=== PATIENT | female | born 1985 | race African-American/Black ===

== ENCOUNTER 2018-03-01 12:16 | Emergency (ER) | payer MEDICAID ==
[~2018-03-01] VITALS: Ht 163.8 cm; Wt 73.0 kg
[~2018-03-01 12:16] MED LIST: BENADRYL EX; BENADRYL25 MG PO; CORTISONE TOP; MEDDOSEPAK PO; STERAPRED DS10 MG PO
[2018-03-01] MEDS ORDERED: SPRINTEC 2828 DAY PO (12:35)
[2018-03-01 12:58] LABS: HEMATOCRIT 32.2 % (37.0-47.0); IMMATURE GRANULOCYTES 0.2 % (0.0-5.0); MEAN CORPUSCULAR HGB 28.2 pG CALC (26.0-32.0); MEAN CORPUSCULAR HGB CONC 32.6 g/L CALC (32.0-36.0); NEUT# 3.17 thou/uL (2.00-7.15); RED BLOOD COUNT 3.72 mill/uL (4.20-5.60); RED CELL DISTRI WIDTH 13.3 % (11.5-15.5)
[2018-03-01 13:06] LABS: HEMOGLOBIN 10.5 g/dl (12.0-16.0); MEAN CELL VOLUME 86.6 fL CALC (80.0-100.0)
[2018-03-01 13:12] LABS: ALBUMIN 4.3 g/dL (3.2-5.0); ALKALINE PHOSPHATASE 35 u/l (38-126); ANION GAP 13 (6-22 (CALC)); BILIRUBIN, TOTAL 0.8 mg/dL (0.0-1.4); BUN 9 mg/dL (7-17); BUN/CREATININE RATIO 15 (12-20 (CALC)); CARBON DIOXIDE 23 mmol/l (22-30); CHLORIDE 105 mmol/l (95-108); CREATININE 0.6 mg/dL (0.5-1.0); GFR > 60 ML/MIN (>=60 (CALC)); GFR FOR AFR.AMER. > 60 ML/MIN (>=60 (CALC)); SGOT/AST 34 u/l (14-36); SODIUM 137 mmol/l (137-146); TOTAL PROTEIN 8.1 g/dL (6.3-8.2)
[2018-03-01 13:20] LABS: BARBITURATES NEGATIVE (NEGATIVE); COCAINE NEGATIVE (NEGATIVE); METHADONE NEGATIVE (NEGATIVE); OXCYCODONE NEGATIVE (NEGATIVE); TETRAHYDROCANNABIONOL NEGATIVE (NEGATIVE); TRICYLIC ANTIDEPRESSANTS NEGATIVE (NEGATIVE)
[2018-03-01 16:45] VITALS: BP 128/88
== END 2018-03-01 16:48 | disposition home or self-care (01) ==
LOC: ED 12:16
PROVIDERS: Family Medicine
DX: R07.89 Other chest pain (principal); R06.02 Shortness of breath; J45.909 Unspecified asthma, uncomplicated

== ENCOUNTER 2019-05-08 09:29 | Emergency (ER) | payer MEDICAID ==
[~2019-05-08] VITALS: Ht 163.8 cm; Wt 71.8 kg
[~2019-05-08 09:29] MED LIST changes: +SPRINTEC 2828 DAY PO
[2019-05-08 11:11] VITALS: BP 140/82
== END 2019-05-08 11:11 | disposition home or self-care (01) ==
LOC: ED 09:29
DX: Z04.89 Encounter for examination and observation for other specified reasons (principal)

== ENCOUNTER 2021-03-15 08:14 | Emergency (ER) | payer MEDICAID ==
[~2021-03-15] VITALS: Ht 165.1 cm; Wt 72.0 kg
[2021-03-15 09:28] LABS: URINE BILIRUBIN - DIPSTICK NEGATIVE (NEGATIVE); URINE BLOOD DIPSTICK TRACE-INTACT (NEGATIVE); URINE COLOR YELLOW; URINE GLUCOSE - DIPSTICK NEGATIVE (NEGATIVE); URINE KETONE NEGATIVE (NEGATIVE); URINE LEUK ESTERASE NEGATIVE (NEGATIVE); URINE PROTEIN - DIPSTICK NEGATIVE (NEG-TRACE); URINE SPECIFIC GRAVITY 1.025; URINE UROBILINOGEN - DIPSTICK 0.2 E.U./dL (0.2)
[2021-03-15 09:32] LABS: URINE NITRITE - DIPSTICK NEGATIVE (Negative)
[2021-03-15] MEDS ORDERED: CYCLOBENZAPRINE10 MG PO (10:51)
[2021-03-15] MEDS ORDERED: NAPROXEN500 MG PO (10:51)
[2021-03-15 10:55] VITALS: BP 147/78
== END 2021-03-15 11:09 | disposition home or self-care (01) ==
LOC: ED 08:14
PROVIDERS: Emergency Medicine
DX: S13.9XXA Sprain of joints and ligaments of unspecified parts of neck, initial encounter (principal); J45.909 Unspecified asthma, uncomplicated; Z94.7 Corneal transplant status; X50.0XXA Overexertion from strenuous movement or load, initial encounter; Y93.43 Activity, gymnastics

== ENCOUNTER 2021-06-23 17:23 | Emergency (ER) | payer MEDICAID ==
[~2021-06-23] VITALS: Ht 165.1 cm; Wt 70.0 kg
[~2021-06-23 17:23] MED LIST changes: +CYCLOBENZAPRINE10 MG PO; +NAPROXEN500 MG PO
[2021-06-23 17:46] VITALS: BP 161/79
== END 2021-06-23 17:46 | disposition home or self-care (01) ==
LOC: ED 17:23
DX: T19.2XXA Foreign body in vulva and vagina, initial encounter (principal); J45.909 Unspecified asthma, uncomplicated; X58.XXXA Exposure to other specified factors, initial encounter

== ENCOUNTER 2022-04-17 08:11 | Emergency (ER) | payer MEDICAID ==
[~2022-04-17] VITALS: Ht 165.1 cm; Wt 72.7 kg
[2022-04-17] VITALS (8 sets, daily range): BP systolic 118–137; BP diastolic 77–88
[2022-04-17 08:48] LABS: URINE BILIRUBIN - DIPSTICK NEGATIVE (NEGATIVE); URINE BLOOD DIPSTICK NEGATIVE (NEGATIVE); URINE COLOR YELLOW; URINE GLUCOSE - DIPSTICK NEGATIVE (NEGATIVE); URINE KETONE NEGATIVE (NEGATIVE); URINE LEUK ESTERASE NEGATIVE (NEGATIVE); URINE PROTEIN - DIPSTICK NEGATIVE (NEG-TRACE); URINE SPECIFIC GRAVITY >=1.030; URINE UROBILINOGEN - DIPSTICK 0.2 E.U./dL (0.2)
[2022-04-17 08:55] LABS: URINE NITRITE - DIPSTICK NEGATIVE (Negative)
[2022-04-17] MEDS ORDERED: TORADOL PO (10:44)
== END 2022-04-17 11:12 | disposition home or self-care (01) ==
LOC: ED 08:11
PROVIDERS: Family Medicine
DX: R07.81 Pleurodynia (principal); J45.909 Unspecified asthma, uncomplicated